=== PATIENT | male | born 1990 ===

== ENCOUNTER 2020-04-09 14:04 | Emergency (ER) | payer SELFPAY ==
--- NOTE | 2020-04-09 16:54 | Emergency Department Report ---
Chief Complaint: Laceration/Recheck/Suture Stated Complaint: STITCHES REMOVED Time Seen by Provider: 04/09/20 16:50 - HPI History of Present Illness: This 30-year-old male presents for suture removal that was done in [place] 7 days ago. Patient denies fever, infection shortness of breath or any other problems - ROS Review of Systems: As noted in HPI - Exam Physical Exam: gENERAL: Alert and oriented x3, no apparent distress, Normal Gait, atraumatic. HEAD: Head is normocephalic and a-traumatic. NOSE:sutures noted noted to the right nostril, SKIN: Warm and dry, No lesions, No ulceration or induration present. MSE screening note: Focused history and physical exam performed. Due to findings the following was ordered: ED Medical Decision Making - Medical Decision Making Patient presents for suture removal. Discussed the patient's is not a medical emergency and he stitches can be removed at the clinic or Dr. Cervantes. Resources given to patient to follow-up for suture removal. ED Disposition for MSE Clinical Impression: Suture check Disposition: MED SCREENING EXAM-LEFT Is pt being admited?: No Does the pt Need Aspirin: No Condition: Stable Referrals: PRIMARY CARE,MD [Primary Care Provider] - 3-5 Days [facility] [Outside] - 3-5 Days [facility] [Outside] - 3-5 Days [facility] [Outside] - 3-5 Days Forms: Work/School Release Form(ED) Time of Disposition: 16:51
[2020-04-09 16:55] VITALS: BP 101/43
== END 2020-04-09 17:08 | disposition left against medical advice (07) ==
LOC: ED 14:04
DX: Z53.21 Procedure and treatment not carried out due to patient leaving prior to being seen by health care provider (principal)